=== PATIENT | female | born 1970 | race Hispanic/Latino ===

== ENCOUNTER 2019-04-24 14:23 | Emergency (ER) | payer BC ==
[2019-04-24 14:57] LABS: Basophils % (Auto) 0.5 % (0.0-1.8); Eosinophils # (Auto) 0.1 K/mm3 (0.0-0.4); Eosinophils % (Auto) 0.8 % (0.0-4.3); Hematocrit 40.5 % (30.3-42.9); Hemoglobin 13.6 gm/dl (10.1-14.3); Lymphocytes # (Auto) 1.4 K/mm3 (1.2-5.4); Lymphocytes % (Auto) 17.1 % (13.4-35.0); Mean Corpuscular HGB Conc 34 % (30-34); Mean Corpuscular Volume 91 fl (79-97); Monocytes # (Auto) 0.4 K/mm3 (0.0-0.8); Monocytes % (Auto) 4.5 % (0.0-7.3); Platelet Count 274 K/mm3 (140-440); Red Blood Count 4.44 M/mm3 (3.65-5.03); Red Cell Distribution Width 13.9 % (13.2-15.2)
[2019-04-24 15:07] LABS: BUN/Creatinine Ratio 25; Blood Urea Nitrogen 15 mg/dL (7-17); Calcium 9.9 mg/dL (8.4-10.2); Hemolysis Index 13
[2019-04-24 15:17] LABS: Bacteria,Urine 2+ /HPF (Negative); Mucus,Urine FEW /HPF
--- NOTE | 2019-04-24 15:19 | Emergency Department Report ---
HPI - General Time Seen by Provider: 04/24/19 14:24 - HPI HPI: 49-year-old female presents to the emergency department for a mental health evaluation. The patient has been having some issues with depression and says "my life is in shambles." She says that this month is the 10 year anniversary of her mother's . She also says that her significant other left her 2 months ago, while she was at work, without any notice. The patient says that she has some feelings of worthlessness. She denies wanting to end her life or to harm herself but says that she sometimes thinks that "maybe things would be better if I was not here." She denies any auditory or visual h allucinations. She denies any homicidal ideations. Patient says that she does have a previous history of depression but is not on any medications. She has an appointment coming up with a psychiatrist on April 30. 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 ED Past Medical Hx - Past Medical History Previous Medical History?: Yes Hx Hypertension: Yes Hx Psychiatric Treatment: Yes (depression) - Surgical History Past Surgical History?: No - Social History Smoking Status: Never Smoker Substance Use Type: Prescribed - Medications Home Medications: Home Medications Medication Instructions Recorded Confirmed Last Taken Type Nitrofurantoin Wolfe/M-Cryst 100 mg PO Q12HR #14 capsule 04/24/19 Unknown Rx [Macrobid CAP] ED Review of Systems ROS: Stated complaint: SI Other details as noted in HPI Comment: All other systems reviewed and negative Constitutional: denies: chills, fever Respiratory: denies: cough, shortness of breath Cardiovascular: denies: chest pain, palpitations Gastrointestinal: denies: abdominal pain, vomiting Musculoskeletal: denies: back pain Neurological: denies: headache, weakness Psychiatric: depression. denies: auditory hallucinations, visual hallucinations, homicidal thoughts Physical Exam - Physical Exam Vital Signs: Vital Signs 04/24/19 04/24/19 14:28 14:42 Temperature 98.0 F Pulse Rate 80 Respiratory 17 17 Rate Blood Pressure 163/100 O2 Sat by Pulse 96 96 Oximetry Physical Exam: GENERAL: The patient is well-developed well-nourished. HENT: Normocephalic. Atraumatic. Patient has moist mucous membranes. EYES: Extraocular motions are intact. NECK: Supple. Trachea is midline. CHEST/LUNGS: Clear to auscultation. There is no respiratory distress noted. HEART/CARDIOVASCULAR: Regular. There is no tachycardia. There is no murmur. ABDOMEN: There is no abdominal distention. SKIN: Skin is warm and dry. NEURO: The patient is awake, alert, and oriented. The patient is cooperative. The patient has no focal neurologic deficits. Normal speech. MUSCULOSKELETAL: There is no tenderness or deformity. There is no evidence of acute injury. PSYCH: Patient is tearful but otherwise calm and appropriate. ED Course Vital Signs 04/24/19 04/24/19 14:28 14:42 Temperature 98.0 F Pulse Rate 80 Respiratory 17 17 Rate Blood Pressure 163/100 O2 Sat by Pulse 96 96 Oximetry ED Medical Decision Making - Lab Data Result diagrams: 04/24/19 14:36 04/24/19 14:36 - Medical Decision Making This patient presents to the emergency department, brought in by the crisis team, after she expressed her thoughts of depression and hopelessness to someone at work. The patient is tearful but otherwise calm and appropriate. She does have some history of depression. Most of her symptoms are related to some personal issues including grieving her mother's and the end of a relationship. While the patient did say that she thinks she might be better off if she were not here or alive, she has no desire to harm herself and does not want to end her life. She does not have any hallucinations or homicidal ideations. Patient's labs were mostly unremarkable except for a mild urinary tract infection that will be treated with Macrobid. She has some mild hypertension but otherwise her vital signs have been stable throughout her ED course thus far. The patient was seen by the psychiatric medicinal plant picker, Marianela, who agrees that the patient does not display actual suicidal ideations and the patient can be contracted for safety. She has some family here now that is showing support and they also feel comfortable with the patient being discharged home. She has an appointment on the with a psychiatrist. The patient agrees with this plan. She has been instructed to call 911 or return to the emergency department immediately with any worsening of her symptoms, thoughts of harming herself or others, or with any acute distress. - Differential Diagnosis depression, mood disorder, grieving, bipolar Critical Care Time: No Critical care attestation.: If time is entered above; I have spent that time in minutes in the direct care of this critically ill patient, excluding procedure time. ED Disposition Clinical Impression: Depression Qualifiers: Depression Type: unspecified Qualified Code(s): F32.9 - Major depressive disorder, single episode, unspecified Hypertension Qualifiers: Hypertension type: essential hypertension Qualified Code(s): I10 - Essential (primary) hypertension UTI (urinary tract infection) Qualifiers: Urinary tract infection type: acute cystitis Hematuria presence: without hematuria Qualified Code(s): N30.00 - Acute cystitis without hematuria Disposition: TO HOME OR SELFCARE Is pt being admited?: No Condition: Stable Instructions: Urinary Tract Infection in Women (ED), Depression (ED), Suicide Prevention for Adults (ED), Hypertension (ED) Additional Instructions: Please follow-up with your primary care physician. Please follow-up with Dr. Anglin on the ninth as previously scheduled. Take your medications as prescribed. Return to the emergency Department or call 911 with any thoughts of harming yourself or others. I am giving you a prescription for an antibiotic, Macrobid/nitrofurantoin, for a urinary tract infection. Try and stay away from foods that are high in salt and caffeinated products. Take your blood pressure medications. Keep a blood pressure log. Prescriptions: Nitrofurantoin Wolfe/M-Cryst [Macrobid CAP] 100 mg PO Q12HR #14 capsule Referrals: WADE ANGLIN MD [Referring] - 04/30/19 Time of Disposition: 17:40
[2019-04-24 15:21] LABS: Bilirubin,Urine NEG (Negative); Blood,Urine MOD (Negative); Color,Urine Yellow (Yellow); Protein,Urine <15 mg/dL mg/dL (Negative); Urobilinogen,Urine < 2.0 mg/dL (<2.0)
[2019-04-24 15:28] LABS: Amphetamine Screen,Urine PRESUMPTIVE NEGATIVE; Cannabinoid Screen,Urine PRESUMPTIVE NEGATIVE; Cocaine Screen,Urine PRESUMPTIVE NEGATIVE; Methadone Screen,Urine PRESUMPTIVE NEGATIVE; Opiate Screen,Urine PRESUMPTIVE NEGATIVE
[2019-04-24] MEDS ORDERED: NITROFURANTOIN MONOHYD/M-CRYST 100 MG CAP PO ONE (15:31)
[2019-04-24 15:41] LABS: Benzodiazepines Screen,Urine PRESUMPTIVE POSITIVE
[2019-04-24 18:04] VITALS: BP 174/98
== END 2019-04-24 18:03 | disposition home or self-care (01) ==
LOC: ED 14:23
DX: F32.9 Major depressive disorder, single episode, unspecified (principal); N39.0 Urinary tract infection, site not specified; I10 Essential (primary) hypertension; Z88.1 Allergy status to other antibiotic agents; Z79.899 Other long term (current) drug therapy
CPT/HCPCS: 36415; 80048; 80307; 80320; 81001; 85025; 87076; 87086; 87186; G0480